=== PATIENT | male | born 1950 | race Caucasian/White ===

== ENCOUNTER → 2017-12-24 | Outpatient (CLI) | payer MEDICARE ==
[2017-12-24 12:57] LABS: Blood Urea Nitrogen 23 mg/dL (9-20)
--- NOTE | 2017-12-24 15:20 | CT ---
EXAMINATION TYPE: CT angio abdomen DATE OF EXAM: 12/24/2017 COMPARISON: June 06, 2016 HISTORY: Patient has no complaints at time of service. Follow up study for known abdominal aortic an eurysm. CT DLP: 602 mGycm CONTRAST: CTA abdominal aorta with 3-D reconstruction is performed and with IV Contrast, patient injected with 100 mL of Omnipaque 350. Contrast CTA of the thoracic and abdominal aorta was performed from the lung apex through the base of the pelvis. 3-D reconstruction imaging obtained at a separate workstation. CONTRAST CT ABDOMEN AND PELVIS ABDOMINAL AORTA: Again noted is infrarenal abdominal aortic aneurysm which measures 5.1 cm AP dimensi on versus 4.6 cm previously. Aneurysm extends approximately 7.7 cm in length. There is a mural thromb us with patent lumen measuring 2.1 cm AP dimension. There is ectasia of the common iliac iliac artery measuring 1.7 cm on the right hand 1.4 cm on the left. Aneurysm neck is approximately 3.7 cm. No angelica dence for dissection or leak. Branch vessels are patent. Lung bases: Calcified pleural plaques identified. LIVER/GB-hepatic steatosis with mild hepatomegaly. The gallbladder surgically absent.. PANCREAS- No significant abnormality is seen. SPLEEN- No significant abnormality is seen. ADRENALS- No significant abnormality is seen. KIDNEYS/BLADDER-simple cortical cyst left mid kidney. No solid renal lesions detected. The kidneys en ilan symmetrically.. BOWEL- No Significant abnormality GENITAL ORGANS: No gross abnormality seen. LYMPH NODES- No greater than 1cm abdominal or pelvic lymph nodes areappreciated. OSSEOUS STRUCTURES- No significant abnormality is seen. [id number] inguinal hernias identified. IMPRESSION- 1. Progression of infrarenal abdominal aortic aneurysm as discussed above. 2. Hepatic steatosis with mild hepatomegaly.
== END | disposition home or self-care (01) ==
LOC: RADCTMAIN 12:14
PROVIDERS: ATTEND Thoracic Surgery (Cardiothoracic Vascular Surgery)
DX: I71.4 Abdominal aortic aneurysm, without rupture (principal); K76.0 Fatty (change of) liver, not elsewhere classified; R16.0 Hepatomegaly, not elsewhere classified
CPT/HCPCS: 82565; 84520; 74175; 36415; Q9967

== ENCOUNTER → 2018-04-08 | Outpatient (CLI) | payer MEDICARE ==
[2018-04-08 10:12] LABS: Blood Urea Nitrogen 25 mg/dL (9-20)
--- NOTE | 2018-04-12 16:31 | CT ---
EXAMINATION TYPE: CT angio abdomen pelvis DATE OF EXAM: 04/08/2018 COMPARISON: CTA abdomen December 24, 2017 HISTORY: Endo leak, history of aneurysm repair earlier this year. CT DLP: 1651.0 mGycm, Automated Exposure Control for Dose Reduction was Utilized. CONTRAST: CTA scan of the abdomen and pelvis is performed without oral and without and with IV Contrast, patien t injected with 100 mL of Isovue 370. Stent graft protocol with Three-D reconstructed images created on independent workstation and reviewed. FINDINGS: VASCULAR: There is new aortobiiliac stent graft which begins at level of celiac axis. There is paten t celiac access, SMA, and bilateral single renal arteries identified. Contrast opacification bilatera l main is favored due to retrograde flow. Stent graft shows a nonmetallic component infrarenal locati on that bridges into the biiliac metallic portion. Postcontrast images show satisfactory opacificatio n of the stent graft. There is no suspicious extraluminal enhancement. There is patency into internal /external iliac arteries identified without significant stenosis. There is mild to moderate plaque th roughout these branch vessels into femoral vessels in the groin region bilaterally without significan t stenosis. [place] aneurysm measures up to 5.1 cm transversely axial image 48 series 5, felt fairly s table from prior study. LUNG BASES: Bilateral calcified pleural plaques are redemonstrated. There is bibasilar linear scarrin g and/or atelectasis. LIVER/GB: Cholecystectomy clips are redemonstrated. Visualized liver is heterogeneously hypodense con sistent with fatty infiltration. PANCREAS: No significant abnormality is seen. SPLEEN: No significant abnormality is seen. ADRENALS: No significant abnormality is seen. KIDNEYS: There is exophytic simple appearing cyst laterally from left kidney series 5 image 34 redemo nstrated. BOWEL: Normal-appearing appendix is incidentally seen. Scattered diverticula throughout the colon mos t prominent in the sigmoid colon are redemonstrated. There is no CT evidence for acute diverticulitis . PROSTATE/SEMINAL VESICLES: No gross abnormality seen. LYMPH NODES: No greater than 1cm abdominal or pelvic lymph nodes are appreciated. OSSEOUS STRUCTURES: There is fairly moderate multilevel spurring in the thoracolumbar spine. OTHER: Small fat-containing left inguinal hernia is redemonstrated. IMPRESSION: Interval placement of aortobiiliac stent graft which appears patent without significant s tenosis. No CT evidence for endoleak or other complication.
== END | disposition home or self-care (01) ==
LOC: RADCTMAIN 09:40
PROVIDERS: ATTEND Surgery
DX: T82.898A Other specified complication of vascular prosthetic devices, implants and grafts, initial encounter (principal); Z85.828 Personal history of other malignant neoplasm of skin
CPT/HCPCS: 82565; 84520; 36415; 74174; Q9967

== ENCOUNTER 2023-04-22 09:02 | Day surgery (SDC) | payer MEDICARE ==
[~2023-04-22 09:02] MED LIST: FAMOTIDINE 20 MG/2 ML VIAL IV PRN; ONDANSETRON 4 MG/2 ML VIAL IVP PRN
[2023-04-22] MEDS ORDERED: LACTATED RINGERS 1,000 ML IV SCH (09:31)
[2023-04-22] MEDS ORDERED: DEXAMETHASONE SOD PHOSPHATE 4 MG/ML 1 ML VIAL IV ONE (09:31)
[2023-04-22 09:56] VITALS: TEMP 97
[2023-04-22] MEDS ORDERED: ePHEDrine 50 MG/ML 1 ML VIAL ONE (10:25)
[2023-04-22] MEDS ORDERED: LIDOCAINE 2% INJ 20 MG/ML (2 ML VIAL) ONE (10:25)
[2023-04-22] MEDS ORDERED: fentaNYL (PF) 50 MCG/ML 2 ML AMP ONE (10:25)
[2023-04-22] MEDS ORDERED: PROPOFOL 10 MG/ML 20 ML VIAL IV ONE (10:25)
[2023-04-22] MEDS ORDERED: SUCCINYLCHOLINE CHLORIDE 200 MG/10 ML VIAL IV ONE (10:25)
[2023-04-22] MEDS ORDERED: LIDOCAINE 2%-EPI 1:100,000 20 ML VIAL SQ ONE (10:45)
[2023-04-22] MEDS ORDERED: BACITRACIN ZINC 500 UNIT/GM OINT 28.4 GM TUBE TOPICAL ONE (11:48)
--- NOTE | 2023-04-22 11:56 | P.OP ---
Date of Procedure: 04/22/23 Preoperative Diagnosis: Left upper neck/parotid mass Postoperative Diagnosis: Same Procedure(s) Performed: Excision left upper neck mass/inferior parotid lesion/superficial parotidectomy with facial nerve monitor Anesthesia: IGORA Surgeon: Mati Arguello Estimated Blood Loss (ml): 5 Pathology: other (Left neck/parotid mass) Condition: stable Disposition: PACU Indications for Procedure: This 72-year-old white male who presents with a left upper neck mass. This appeared on CT to arise from the lower aspect of the parotid gland but is in the upper neck. Fine-needle aspiration was nondiagnostic. Operative Findings: Cystic mass left upper neck 7 x 2.5 cm which was well arcaded. 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 This was excised grossly entirely Description of Procedure: Patient was brought in after suite and placed in a supine position. The patient underwent induction of general anesthesia with oral endotracheal intubation without difficulty. Patient was prepped and draped in usual aseptic fashion. The Nim II nerve monitor was in place and was working well to monitor the facial nerve. A transverse upper cervical incision was made 2 fingerbreadths below the mandible and carried sharply through skin and subcutaneous tissue as well as platysma layer. The lesion was located anteriorly sternocleidomastoid muscle and a plane was developed between the sternocleidomastoid muscle and the mass. The greater regular nerve was identified and preserved. The spinal accessory nerve was deep to this lesion. This did abut the inferior aspect of the parotid gland and therefore a small cuff of normal-appearing products and was excised with the lesion. The lesion was excised from the surrounding tissue grossly entirely and was then removed. The marginal mandibular branch of facial nerve was identified and preserved. In well with the monitor at the conclusion of the case. The wound was copiously irrigated with sterile normal saline and hemostasis noted to be good. The wound was then closed in the deep muscular and superficial muscular layer with inverted interrupted Prolene suture. Bacitracin ointment and a sterile dressing were placed. The patient tolerated procedure well with no complications and was extubated in the operating suite and transferred to postop recovery area in satisfactory condition. Facial nerve was working well at the conclusion of the case.
[2023-04-22 12:12] VITALS: RESP 16
[2023-04-22 13:10] VITALS: BP 146/82; PULSE 75
[2023-04-23] MEDS ORDERED: fentaNYL (PF) 50 MCG/ML 2 ML AMP IV PRN (07:00)
== END 2023-04-22 13:24 | disposition home or self-care (01) ==
LOC: OR 09:02
PROVIDERS: ATTEND Otolaryngology
DX: D11.9 Benign neoplasm of major salivary gland, unspecified (principal); I48.91 Unspecified atrial fibrillation; I10 Essential (primary) hypertension; E78.5 Hyperlipidemia, unspecified; M19.90 Unspecified osteoarthritis, unspecified site; F10.20 Alcohol dependence, uncomplicated; Z79.01 Long term (current) use of anticoagulants; Z79.899 Other long term (current) drug therapy; Z87.891 Personal history of nicotine dependence
CPT/HCPCS: 88307; 42415; J0330; J1100; J0690; J2405; J3010; J2704; J2001

== ENCOUNTER 2024-04-23 20:49 | Observation (INO) | payer MEDICARE ==
[2024-04-23 21:42] LABS: Basophils % (A) 1 %; Eosinophils # (A) 0.2 k/uL (0-0.7); Eosinophils % (A) 4 %; HCT 35.7 % (39.0-53.0); Lymphocytes # (A) 2.2 k/uL (1.0-4.8); Lymphocytes % (A) 33 %; MCH 33.9 pg (25.0-35.0); MCHC 33.5 g/dL (31.0-37.0); MCV 101.3 fL (80.0-100.0); Macrocytosis Slight; Mean Platelet Volume 7.7; Monocytes # (A) 0.4 k/uL (0-1.0); Monocytes % (A) 7 %; Neutrophils # (A) 3.6 k/uL (1.3-7.7); Neutrophils % (A) 54 %; Platelet Count 259 k/uL (150-450); RBC 3.53 m/uL (4.30-5.90); WBC 6.6 k/uL (3.8-10.6)
--- NOTE | 2024-04-23 21:51 | CT ---
EXAMINATION TYPE: CT brain wo con DATE OF EXAM: 04/23/2024 COMPARISON: INDICATION: weakness DLP: 1101.8 mGycm, Automated exposure control for dose reduction was used. CONTRAST: None CT of the brain is performed utilizing 3 mm thick sections through the posterior fossa and 3 mm thick sections through the remaining calvarium. Study is performed within 24 hours of arrival to the hosp ital. No abnormal hyperdensity is present to suggest an acute intracranial hemorrhage. No mass lesion is evident. No acute infarcts are evident. Couple of small lacunar infarcts may be in the right periventricular w joseph matter. Ventricles and sulci are appropriate for the patient age. Paranasal sinuses and mastoid air cells within the [id number] are clear. IMPRESSION: 1. No acute intracranial process radiographically apparent. Follow-up MRI can be performed as clini lauren indicated. 2. Old tiny right periventricular lacunar infarcts may be present.
[2024-04-23 21:52] LABS: Partial Thromboplastin Time 24.7 sec (22.0-30.0); Prothrombin Time 10.5 sec (10.0-12.5)
--- NOTE | 2024-04-23 22:00 | XR ---
EXAMINATION TYPE: XR chest 2V DATE OF EXAM: 04/23/2024 COMPARISON: None INDICATION: Altered mental status TECHNIQUE: Frontal and lateral views of the chest are obtained. FINDINGS: The heart size is normal. The pulmonary vasculature is normal. The lungs are clear. IMPRESSION: 1. No acute pulmonary process.
[2024-04-23 22:07] LABS: ALT 30 U/L (4-49); AST 28 U/L (17-59); African American GFR (CKD) >90 (>60 ml/min/1.73 sqM); Albumin 3.9 g/dL (3.5-5.0); Alkaline Phosphatase 76 U/L (38-126); Anion Gap 7 mmol/L; Blood Urea Nitrogen 20 mg/dL (9-20); Calcium 8.6 mg/dL (8.4-10.2); Carbon Dioxide 26 mmol/L (22-30); Chloride 105 mmol/L (98-107); Creatine Kinase 148 U/L (55-170); Glucose 139 mg/dL (74-99); Non-African American GFR(CKD) 78 (>60 ml/min/1.73 sqM); Potassium 4.1 mmol/L (3.5-5.1); Sodium 138 mmol/L (137-145); Total Bilirubin 1.7 mg/dL (0.2-1.3); Total Protein 6.6 g/dL (6.3-8.2)
--- NOTE | 2024-04-24 03:35 | ED ---
General Adult HPI - General Chief complaint: Neuro Symptoms/Deficit Stated complaint: Possible stroke Time Seen by Provider: 04/24/24 00:54 Source: patient Mode of arrival: ambulatory Limitations: no limitations - History of Present Illness Initial comments: Mason is a pleasant 73-year-old gentleman who presents to the emergency department today for evaluation of concern for TIA. Patient reports that [place] when he had about 3 minutes of left-sided facial droop and slurred speech. Patient states that symptoms resolved spontaneously. He states that one of the friends and his group is an EMT and told him he thought he was having a stroke. Patient did not want to seek care in the [facility] so he waited till he got back to home and came to the hospital today. Patient does note that last month he had a unwitnessed syncopal episode while shopping and was taken to an outside hospital where he was seen in the ER with no acute findings and subsequently discharged home and now he is concerned that that might have been a TIA as well. - Related Data Home Medications Medication Instructions Recorded Confirmed Apixaban [Eliquis] 5 mg PO BID 04/17/23 04/22/23 Atorvastatin Calcium 40 mg PO HS 04/17/23 04/22/23 Metoprolol Succinate (ER) [Toprol 12.5 mg PO DAILY 04/17/23 04/22/23 Xl] Allergies Allergy/AdvReac Type Severity Reaction Status Date / Time No Known Allergies Allergy Verified 04/22/23 09:57 Review of Systems ROS Statement: Those systems with pertinent positive or pertinent negative responses have been documented in the HPI. ROS Other: All systems not noted in ROS Statement are negative. Past Medical History Past Medical History: Atrial Fibrillation, Hyperlipidemia Additional Past Medical History / Comment(s): aneruysm abdominal with stent,went into a fib during knee surgery, History of Any Multi-Drug Resistant Organisms: None Reported Past Surgical History: Cholecystectomy, Joint Replacement Additional Past Surgical History / Comment(s): total rt knee, stent to aneurysm Abdomnial Past Anesthesia/Blood Transfusion Reactions: No Reported Reaction Past Psychological History: No Psychological Hx Reported Smoking Status: Former smoker Past Alcohol Use History: Occasional Past Drug Use History: None Reported General Exam - General Exam Comments Initial Comments: Physical Exam GENERAL: Patient is well-developed and well-nourished. Patient is nontoxic and well- hydrated and is in no distress. HENT: Normocephalic, Atraumatic. EYES: PERRL, EOMI PULMONARY: Unlabored respirations. No audible rales rhonchi or wheezing was noted. CARDIOVASCULAR: There is a regular rate and rhythm without any murmurs gallops or rubs. ABDOMEN: Soft and nontender with normal bowel sounds. SKIN: Skin is clear with no lesions or rashes and otherwise unremarkable. : Deferred NEUROLOGIC: Patient is alert and oriented x3. Moving all extremities spontaneously No facial droop no slurred speech no dysarthria or patient MUSCULOSKELETAL: Normal extremities with adequate strength and full range of motion. No lower extremity swelling or edema. No calf tenderness. PSYCHIATRIC: Normal psychiatric evaluation. Limitations: no limitations Course Vital Signs 04/23/24 04/23/24 04/24/24 20:52 23:59 04:07 Temperature 98.8 F 98.4 F Pulse Rate 77 75 70 Respiratory 18 17 17 Rate Blood Pressure 174/82 150/75 143/70 O2 Sat by Pulse 97 96 97 Oximetry Medical Decision Making - Medical Decision Making Was pt. sent in by a medical professional or institution (, PA, ISSUE CLERK, urgent care, hospital, or fpc...) When possible be specific @ -No Did you speak to anyone other than the patient for history (EMS, parent, family, police, friend...)? What history was obtained from this source @ -No Did you review nursing and triage notes (agree or disagree)? Why? @ -I reviewed and agree with nursing and triage notes Were old charts reviewed (outside hosp., previous admission, EMS record, old EKG, old radiological studies, urgent care reports/EKG's, fpc records)? Report findings @ -No old charts were reviewed Differential Diagnosis (chest pain, altered mental status, abdominal pain women, abdominal pain men, vaginal bleeding, weakness, fever, dyspnea, syncope, headache, dizziness, GI bleed, back pain, seizure, CVA, palpatations, mental he alth)? @ -DM differential CVA EKG interpreted by me (3pts min.). @ -As above X-rays interpreted by me (1pt min.). @ -None done CT interpreted by me (1pt min.). @ -No mass or bleed U/S interpreted by me (1pt. min.). @ -None done What testing was considered but not performed or refused? (CT, X-rays, U/S, labs)? Why? @ -None What meds were considered but not given or refused? Why? @ -None Did you discuss the management of the patient with other professionals (professionals i.e. , PA, ISSUE CLERK, lab, RT, psych nurse, medical social worker, family practice medical doctor, teacher, privacy officer, senior case manager)? Give summary @ -No Was smoking cessation discussed for >3mins.? @ -No Was critical care preformed (if so, how long)? @ -No Were there social determinants of health that impacted care today? How? (Homelessness, low income, unemployed, alcoholism, drug addiction, transportation, low edu. Level, literacy, decrease access to med. care, shelter, rehab)? @ -No Was there de-escalation of care discussed even if they declined (Discuss DNR or withdrawal of care, Hospice)? DNR status @ -No What co-morbidities impacted this encounter? (DM, HTN, Smoking, COPD, CAD, Cancer, CVA, ARF, Chemo, Hep., AIDS, mental health diagnosis, sleep apnea, morbid obesity)? @ -A-fib, obesity Was patient admitted / discharged? Hospital course, mention meds given and route, prescriptions, significant lab abnormalities, going to OR and other pertinent info. @ -Admit Patient was seen and evaluated stroke workup was initiated in triage. There are CT findings concerning for previous lacunar infarcts but no acute findings. Given that the patient has never had a TIA in the past he will be admitted for TIA workup. Aspirin and Lipitor were ordered. Carotid Dopplers and echo were ordered. Patient was accepted to [facility] hospitalist. Undiagnosed new problem with uncertain prognosis? @ -No Drug Therapy requiring intensive monitoring for toxicity (Heparin, Nitro, Insulin, Cardizem)? @ -No Were any procedures done? @ -No Diagnosis/symptom? @ -TIA Acute, or Chronic, or Acute on Chronic? @ -Acute Uncomplicated (without systemic symptoms) or Complicated (systemic symptoms)? @ -Default Side effects of treatment? @ -No Exacerbation, Progression, or Severe Exacerbation? @ -No Poses a threat to life or bodily function? How? (Chest pain, [place], [place], pneumonia, PE, COPD, DKA, ARF, appy, cholecystitis, CVA, Diverticulitis, Homicidal, Suicidal, threat to staff... and all critical care pts) @ -No - Lab Data Result diagrams: 04/23/24 21:16 04/23/24 21:16 Lab Results 04/23/24 04/23/24 04/23/24 Range/Units 21:16 21:16 21:16 WBC 6.6 (3.8-10.6) k/uL RBC 3.53 L (4.30-5.90) m/uL Hgb 12.0 L (13.0-17.5) gm/dL Hct 35.7 L (39.0-53.0) % MCV 101.3 H (80.0-100.0) fL MCH 33.9 (25.0-35.0) pg MCHC 33.5 (31.0-37.0) g/dL RDW 15.0 (11.5-15.5) % Plt Count 259 (150-450) k/uL MPV 7.7 Neutrophils % 54 % Lymphocytes % 33 % Monocytes % 7 % Eosinophils % 4 % Basophils % 1 % Neutrophils # 3.6 (1.3-7.7) k/uL Lymphocytes # 2.2 (1.0-4.8) k/uL Monocytes # 0.4 (0-1.0) k/uL Eosinophils # 0.2 (0-0.7) k/uL Basophils # 0.0 (0-0.2) k/uL Macrocytosis Slight PT 10.5 (10.0-12.5) sec INR 1.0 (<1.2) APTT 24.7 (22.0-30.0) sec Sodium 138 (137-145) mmol/L Potassium 4.1 (3.5-5.1) mmol/L Chloride 105 (98-107) mmol/L Carbon Dioxide 26 (22-30) mmol/L Anion Gap 7 mmol/L BUN 20 (9-20) mg/dL Creatinine 0.95 (0.66-1.25) mg/dL Est GFR (CKD-EPI)AfAm >90 (>60 ml/min/1.73 sqM) Est GFR (CKD-EPI)NonAf 78 (>60 ml/min/1.73 sqM) Glucose 139 H (74-99) mg/dL Calcium 8.6 (8.4-10.2) mg/dL Total Bilirubin 1.7 H (0.2-1.3) mg/dL AST 28 (17-59) U/L ALT 30 (4-49) U/L Alkaline Phosphatase 76 (38-126) U/L Creatine Kinase 148 (55-170) U/L Troponin I (0.000-0.034) ng/mL Total Protein 6.6 (6.3-8.2) g/dL Albumin 3.9 (3.5-5.0) g/dL 04/23/24 Range/Units 21:16 WBC (3.8-10.6) k/uL RBC (4.30-5.90) m/uL Hgb (13.0-17.5) gm/dL Hct (39.0-53.0) % MCV (80.0-100.0) fL MCH (25.0-35.0) pg MCHC (31.0-37.0) g/dL RDW (11.5-15.5) % Plt Count (150-450) k/uL MPV Neutrophils % % Lymphocytes % % Monocytes % % Eosinophils % % Basophils % % Neutrophils # (1.3-7.7) k/uL Lymphocytes # (1.0-4.8) k/uL Monocytes # (0-1.0) k/uL Eosinophils # (0-0.7) k/uL Basophils # (0-0.2) k/uL Macrocytosis PT (10.0-12.5) sec INR (<1.2) APTT (22.0-30.0) sec Sodium (137-145) mmol/L Potassium (3.5-5.1) mmol/L Chloride (98-107) mmol/L Carbon Dioxide (22-30) mmol/L Anion Gap mmol/L BUN (9-20) mg/dL Creatinine (0.66-1.25) mg/dL Est GFR (CKD-EPI)AfAm (>60 ml/min/1.73 sqM) Est GFR (CKD-EPI)NonAf (>60 ml/min/1.73 sqM) Glucose (74-99) mg/dL Calcium (8.4-10.2) mg/dL Total Bilirubin (0.2-1.3) mg/dL AST (17-59) U/L ALT (4-49) U/L Alkaline Phosphatase (38-126) U/L Creatine Kinase (55-170) U/L Troponin I <0.012 (0.000-0.034) ng/mL Total Protein (6.3-8.2) g/dL Albumin (3.5-5.0) g/dL Disposition Clinical Impression: Transient cerebral ischemia Disposition: ADMITTED IP TO THIS HOSP Condition: Stable Is patient prescribed a controlled substance at d/c from ED?: No
[2024-04-24] MEDS: ASPIRIN 325 MG TAB PO STA (03:53)
--- NOTE | 2024-04-24 09:58 | US ---
EXAMINATION TYPE: US carotid duplex BILAT DATE OF EXAM: 04/24/2024 COMPARISON: NONE CLINICAL INDICATION: Male, 73 years old with history of Stenosis; Stenosis TIA TECHNIQUE: Carotid duplex ultrasound examination. Indirect Doppler criteria was utilized. FINDINGS: EXAM MEASUREMENTS: RIGHT: Peak Systolic Velocity (PSV) cm/sec ----- Right CCA: 55.8 ----- Right ICA: 321 ----- Right ECA: 181 ICA/CCA ratio: 5.8 RIGHT: End Diastole cm/sec ----- Right CCA: 16.6 ----- Right ICA: 164 ----- Right ECA: 42 LEFT: Peak Systolic Velocity (PSV) cm/sec ----- Left CCA: 93.7 ----- Left ICA: 157 ----- Left ECA: 136 ICA/CCA ratio: 1.7 LEFT: End Diastole cm/sec ----- Left CCA: 36.7 ----- Left ICA: 49.8 ----- Left ECA: 35.4 VERTEBRALS (direction of flow): Right Vertebral: Antegrade Left Vertebral: Antegrade Rhythm: Normal [employer] ADVISER NOTES: IMPRESSION: 1. Mild increased velocity within the left internal carotid artery compatible with narrowing between 50 and 69%. 2. Marked elevated velocity right internal carotid artery greater than 70%. Criteria for Assigning % of Stenosis / Diameter reduction (Estimation based on the indirect measurements of the internal carotid artery velocities (ICA PSV). 1. Normal (no stenosis)=ICA PSV < 125 cm/s: ratio < 2.0: ICA EDV<40 cm/s. 2. Less than 50% stenosis=ICA PSV < 125 cm/s: ratio < 2.0: ICA EDV<40 cm/s. 3. 50 to 69% stenosis=ICA PSV of 125 to 230 cm/s: ration 2.0 ? 4.0: ICA EDV 40-100 cm/s. 4. Greater than 70% stenosis to near occlusion= ICA PSV > 230 cm/s: ratio > 4.0: ICA EDV > 100 cm/s. 5. Near occlusion= ICA PSV velocities may be low or undetectable: variable ratio and ICA EDV. 6. Total occlusion=unable to detect flow.
--- NOTE | 2024-04-24 13:04 | P.HPIM ---
History of Present Illness H&P Date: 04/24/24 History of present illness; patient 73-year-old gentleman past medical history significant for atrial fibrillation presented to ER for evaluation for episode of left facial droop. Patient stated that he was [place] group of friends and yesterday had an event when his friend noted that his face was droopy on the left side as well as slurred speech, the whole episode lasted less than 3 minutes. At that time there was no complaint of weakness of any extremity. No complaint of loss of consciousness. Patient was back to normal. At the time he did not seek any medical help and decided to wait till he come back to [place]. Patient also recalls that he had an event last month for syncope at which time he was seen in the hospital and was discharged. Initial lab work done in the ER showed WBC 6.6, hemoglobin 12, platelet count 259, sodium 130, potassium 4.1, BUN 20, creatinine 0.95, calcium 8.6, glucose 113, bilirubin 1.7, troponin 0.012 Chest x-ray done in the ER showed no acute pulmonary process CT head done showed no acute intracranial process, old tiny right periventric ular lacunar infarct may be present Patient admitted to internal medicine service REVIEW OF SYSTEMS: CONSTITUTIONAL: No fever, no malaise, no fatigue. HEENT: No recent visual problems or hearing problems. Denied any sore throat. CARDIOVASCULAR: No chest pain, orthopnea, PND, no palpitations, no syncope. PULMONARY: No shortness of breath, no cough, no hemoptysis. GASTROINTESTINAL: No diarrhea, no nausea, no vomiting, no abdominal pain. NEUROLOGICAL: As mentioned above HEMATOLOGICAL: Denies any bleeding or petechiae. GENITOURINARY: Denies any burning micturition, frequency, or urgency. MUSCULOSKELETAL/RHEUMATOLOGICAL: Denies any joint pain, swelling, or any muscle pain. ENDOCRINE: Denies any polyuria or polydipsia. The rest of the 14-point review of systems is negative. PHYSICAL EXAMINATION: GENERAL: The patient is alert and oriented x3, not in any acute distress. Well developed, well nourished. HEENT: Pupils are round and equally reacting to light. EOMI. No scleral icterus. No conjunctival pallor. Normocephalic, atraumatic. No pharyngeal erythema. No thyromegaly. CARDIOVASCULAR: S1 and S2 present. No murmurs, rubs, or gallops. PULMONARY: Chest is clear to auscultation, no wheezing or crackles. ABDOMEN: Soft, nontender, nondistended, normoactive bowel sounds. No palpable organomegaly. MUSCULOSKELETAL: No joint swelling or deformity. EXTREMITIES: No cyanosis, clubbing, or pedal edema. NEUROLOGICAL: Gross neurological examination did not reveal any focal deficits. SKIN: No rashes. Assessment and plan TIA Right ICA stenosis History of syncope History of atrial fibrillation Monitor vital signs Monitor CBC Monitor CMP Continue telemetry monitoring Continue neurochecks Ordered lipid panel Ordered HbA1c level Continue Plavix and Lipitor Ordered 2D echo Ordered ultrasound of carotids Consult neurology Labs and medication were reviewed.. Continue same treatment. Continue with symptomatic treatment. Resume home medication. Monitor labs and vitals. DVT and GI prophylaxis. Further recommendations as per clinical course of the patient Dictation was produced using [employer] dictation software. please excuse any grammatical, word or spelling errors. Past Medical History Past Medical History: Atrial Fibrillation, Hyperlipidemia Additional Past Medical History / Comment(s): aneruysm abdominal with stent,went into a fib during knee surgery, History of Any Multi-Drug Resistant Organisms: None Reported Past Surgical History: Cholecystectomy, Joint Replacement Additional Past Surgical History / Comment(s): total rt knee, stent to aneurysm Abdomnial Past Anesthesia/Blood Transfusion Reactions: No Reported Reaction Past Psychological History: No Psychological Hx Reported Smoking Status: Former smoker Past Alcohol Use History: Occasional Past Drug Use History: None Reported Medications and Allergies Home Medications Medication Instructions Recorded Confirmed Type Apixaban [Eliquis] 5 mg PO BID 04/17/23 04/24/24 History Atorvastatin Calcium 40 mg PO HS 04/17/23 04/24/24 History Metoprolol Succinate (ER) [Toprol 12.5 mg PO DAILY 04/17/23 04/24/24 History Xl] Mv-Min/Folic/K1/Lycopen/Lutein 1 tab PO DAILY 04/24/24 04/24/24 History [Centrum Silver Men Tablet] Allergies Allergy/AdvReac Type Severity Reaction Status Date / Time No Known Allergies Allergy Verified 04/24/24 09:36 Physical Exam Vitals: Vital Signs Temp Pulse Pulse Resp BP BP Pulse Ox 04/24/24 07:28 97.7 F 68 17 127/69 96 04/24/24 04:07 98.4 F 70 17 143/70 97 04/23/24 23:59 75 17 150/75 96 04/23/24 20:52 98.8 F 77 18 174/82 97 Intake and Output 04/23/24 04/24/24 04/24/24 22:59 06:59 14:59 Other: # Voids 1 Weight 87.997 kg 87.997 kg Results CBC & Chem 7: 04/23/24 21:16 04/23/24 21:16 Labs: Abnormal Lab Results - Last 24 Hours (Table) 04/23/24 04/23/24 Range/Units 21:16 21:16 RBC 3.53 L (4.30-5.90) m/uL Hgb 12.0 L (13.0-17.5) gm/dL Hct 35.7 L (39.0-53.0) % MCV 101.3 H (80.0-100.0) fL Glucose 139 H (74-99) mg/dL Total Bilirubin 1.7 H (0.2-1.3) mg/dL Thrombosis Risk Factor Assmnt - Choose All That Apply Any of the Below Risk Factors Present?: Yes Each Factor Represents 1 point: Obesity (BMI >25) Other Risk Factors: Yes Each Risk Factor Represents 3 Points: Age 75 years or older Other congenital or acquired thrombophilia - If yes, enter type in comment: No Thrombosis Risk Factor Assessment Total Risk Factor Score: 4 Thrombosis Risk Factor Assessment Level: Moderate Risk
--- NOTE | 2024-04-24 13:06 | P.CNNES ---
History of Present Illness Consult date: 04/24/24 Requesting physician: Randi Bray Reason for Consult: tia History of Present Illness: This is a 73-year-old gentleman with history of atrial fibrillation on Eliquis, essential tremor, borderline diabetes who presents to the emergency department because of left facial droop, slurring of the speech. Patient stated that he was with his friends [place] while he was in [facility] this past Thursday and he had slurring of the speech, and he slumped over and he does not recall the episode. One of his friends is a former EMT and he felt the patient was slurring his speech and had a left facial droop. The episode lasted for 3 minutes. After the episode he felt back to baseline. He stated about a month ago he was dizzy and he fell while shopping but did not lose consciousness and he was taken to [facility] and had workup he had a CT of the head EKG and x-ray and everything was normal. He was discharged home. He denies any history of stroke or TIAs in the past. Denies any history of seizure. He states that he has a history of atrial fibrillation and he is compliant taking his Eliquis. He states while taking aspirin in the past he had epistaxis so it was discontinued in the past. He is on Lipitor. Denies tobacco use or any illicit drug use. He socially drinks alcohol. He decided to come to the hospital now to be closer to family. Some of the workup during this hospital visit consisted of: Reviewed lab workup. CT of the head is reported as no acute intracranial process radiographically apparent. Old tiny right periventricular lacunar infarct may be present. Personally reviewed the CT of the head and I agree with the report. Review of Systems Review of system: The 12 point system was reviewed and apparent positive and ne gative per HPI. Past Medical History Past Medical History: Atrial Fibrillation, Hyperlipidemia Additional Past Medical History / Comment(s): aneruysm abdominal with stent,went into a fib during knee surgery, History of Any Multi-Drug Resistant Organisms: None Reported Past Surgical History: Cholecystectomy, Joint Replacement Additional Past Surgical History / Comment(s): total rt knee, stent to aneurysm Abdomnial Past Anesthesia/Blood Transfusion Reactions: No Reported Reaction Past Psychological History: No Psychological Hx Reported Smoking Status: Former smoker Past Alcohol Use History: Occasional Past Drug Use History: None Reported Medications and Allergies Home Medications Medication Instructions Recorded Confirmed Type Apixaban [Eliquis] 5 mg PO BID 04/17/23 04/24/24 History Atorvastatin Calcium 40 mg PO HS 04/17/23 04/24/24 History Metoprolol Succinate (ER) [Toprol 12.5 mg PO DAILY 04/17/23 04/24/24 History Xl] Mv-Min/Folic/K1/Lycopen/Lutein 1 tab PO DAILY 04/24/24 04/24/24 History [Centrum Silver Men Tablet] Allergies Allergy/AdvReac Type Severity Reaction Status Date / Time No Known Allergies Allergy Verified 04/24/24 09:36 Physical Examination - Vital Signs Vital Signs: Vital Signs Temp Pulse Pulse Resp BP BP Pulse Ox 04/24/24 07:28 97.7 F 68 17 127/69 96 04/24/24 04:07 98.4 F 70 17 143/70 97 04/23/24 23:59 75 17 150/75 96 04/23/24 20:52 98.8 F 77 18 174/82 97 Intake and Output 04/23/24 04/24/24 04/24/24 22:59 06:59 14:59 Other: # Voids 1 Weight 87.997 kg 87.997 kg GENERAL: The patient is lying in bed and is not in acute distress. NEUROLOGICAL: Higher mental function: The patient is awake, alert, oriented to self, place and time. Patient is following commands. No aphasia and no neglect. Cranial nerves: The pupils are round, equal and reactive to light and accommodation. Visual bravo are full to confrontation throughout. Extraocular movement is intact no nystagmus is noted. Facial sensation is normal to touch throughout. The facial strength is normal throughout. Hearing is normal bilaterally to hand rub. Tongue is midline and moved [id number] without any difficulty. No dysarthria is noted. Shoulder shrug is normal bilaterally. Motor: The strength is 5 over 5 throughout. Normal tone and bulk. Cerebellum: Normal finger to nose heel to martinez bilaterally. Has end action tremor. Sensation: Sensation is normal to touch throughout. Reflexes (right/left): 2+ throughout. Plantars are downgoing bilaterally. Results - Laboratory Findings CBC and BMP: 04/23/24 21:16 04/23/24 21:16 Abnormal Lab Findings: Abnormal Labs 04/23/24 04/23/24 21:16 21:16 RBC 3.53 L Hgb 12.0 L Hct 35.7 L MCV 101.3 H Glucose 139 H Total Bilirubin 1.7 H Assessment and Plan Assessment: This is a 73-year-old gentleman present emergency department since on Thursday while with friends in the [facility] he had episode of dysarthria, left facial droop and slumped off. He does not recall the episode. The episode lasted for 3 minutes. He decided to come to the hospital in [place] to be closer to the family. Transient episode of left facial droop, dysarthria is likely due to transient ischemic attack. Recent CT head shows no acute process but old lacunar on the right and it seems over the right basal ganglia. Recent episode of dizziness falling without loss of consciousness and had workup at outside hospital at [facility] and had CT of the head which was unremarkable Atrial fibrillation on Eliquis Borderline diabetes History of abdominal aortic aneurysm status postrepair Essential tremor Plan: ED the patient was given aspirin 325 once today. I will not start the patient on aspirin since he has a history of epistaxis with aspirin use. I started the patient on Plavix 75 mg daily. Recommend resuming his Eliquis for his history of A-fib. Lipitor 80 mg nightly is started by the ED team at home he was on 40 mg. I ordered MRI of the brain, carotid duplex 2D echo, Lipid panel was ordered and is pending Continue neurochecks Cardiac monitoring PT OT and CARDIOPULMONARY TECHNOLOGIST are consulted For the rest of the medical management to primary and other specialist For DVT prophylaxis again recommend the patient to be on Eliquis The plan discussed with the patient and his nurse Thank you for the consultation Addendum: Carotid duplex is reported as mild increased velocity within the left internal carotid artery compatible with narrowing between 50 and 69%. Marked elevated velocity right ICA greater than 70%. The patient has symptomatic right ICA will consult vascular surgery team Time with Patient: Greater than 30
[2024-04-24] MEDS: APIXABAN 5 MG TAB PO SCH (21:42)
[2024-04-24] MEDS: ATORVASTATIN 80 MG TAB PO SCH (21:42)
[2024-04-25] MEDS ORDERED: ASPIRIN 325 MG TAB PO SCH (09:00)
[2024-04-25] MEDS: CLOPIDOGREL 75 MG TAB PO SCH (09:32)
[2024-04-25] MEDS: METOPROLOL SUCCINATE (ER) 25 MG TAB.ER.24H PO SCH (09:33)
[2024-04-25 09:38] LABS: Chol/HDL Ratio 3.92 Ratio; LDL Cholesterol,Calculated 80.8 mg/dL (0.0-131.0)
--- NOTE | 2024-04-25 14:07 | P.GSCN ---
History of Present Illness Consult date: 04/25/24 Reason for Consult: Carotid stenosis History of present illness: Patient is a 73-year-old male who had presented with a 3-minute history of left facial droop and speech slurring. According to Dr. Galloway the patient had also expressed a history of left arm weakness although that was not provided to me by the patient. His symptoms have not reoccurred. He has a history of abdominal aortic aneurysm which has been repaired approximately [address] Kline. He denies any previous neurologic event. Past Medical History Past Medical History: Atrial Fibrillation, Hyperlipidemia Additional Past Medical History / Comment(s): aneruysm abdominal with stent,went into a fib during knee surgery, History of Any Multi-Drug Resistant Organisms: None Reported Past Surgical History: Cholecystectomy, Joint Replacement Additional Past Surgical History / Comment(s): total rt knee, stent to aneurysm Abdomnial Past Anesthesia/Blood Transfusion Reactions: No Reported Reaction Past Psychological History: No Psychological Hx Reported Smoking Status: Former smoker Past Alcohol Use History: Occasional Past Drug Use History: None Reported Medications and Allergies Home Medications Medication Instructions Recorded Confirmed Type Apixaban [Eliquis] 5 mg PO BID 04/17/23 04/24/24 History Atorvastatin Calcium 40 mg PO HS 04/17/23 04/24/24 History Metoprolol Succinate (ER) [Toprol 12.5 mg PO DAILY 04/17/23 04/24/24 History Xl] Mv-Min/Folic/K1/Lycopen/Lutein 1 tab PO DAILY 04/24/24 04/24/24 History [Centrum Silver Men Tablet] Allergies Allergy/AdvReac Type Severity Reaction Status Date / Time No Known Allergies Allergy Verified 04/24/24 09:36 Surgical - Exam Osteopathic Statement: *. No significant issues noted on an osteopathic structural exam other than those noted in the History and Physical/Consult. Vital Signs Temp Pulse Resp BP Pulse Ox 98.8 F 77 18 174/82 97 04/23/24 20:52 04/23/24 20:52 04/23/24 20:52 04/23/24 20:52 04/23/24 20:52 Patient is awake, alert in no apparent distress. Neck is supple without carotid bruit noted. Heart: Regular rate and rhythm. Lungs: Clear to auscultation bilaterally. Abdomen: Soft and otherwise benign. Lower extremities: Demonstrates palpable femoral, popliteal and posterior tibial pulses bilaterally. There is no leg edema. Neurologic examination demonstrates cranial nerves II through XII are grossly intact. There appears to be equal motor strength in the upper and lower extremities bilaterally. I reviewed with the patient the results of the venous duplex demonstrating hemodynamically severe right ICA stenosis. To further evaluate this we will obtain a CT angiogram of the neck to evaluate for possible carotid stenting versus endarterectomy. Results - Labs 04/23/24 21:16 04/23/24 21:16 Abnormal Lab Results - Last 24 Hours (Table) 04/25/24 04/25/24 Range/Units 06:35 06:35 Hemoglobin A1c 6.9 H (<=6.0) % Triglycerides 181.00 H (0.00-149.00) mg/dL Diabetes panel 04/25/24 04/25/24 Range/Units 06:35 06:35 Hemoglobin A1c 6.9 H (<=6.0) % Triglycerides 181.00 H (0.00-149.00) mg/dL HDL Cholesterol 40.00 (40.00-60.00) mg/dL Assessment and Plan Assessment: Hemodynamically severe and possibly symptomatic right ICA stenosis Status post stent graft repair abdominal aortic aneurysm Plan: Will obtain CT angiogram of the carotid system bilaterally. Further recommendations will be forthcoming.
--- NOTE | 2024-04-25 14:11 | P.PN ---
Subjective Progress Note Date: 04/25/24 patient 73-year-old gentleman past medical history significant for atrial fibrillation presented to ER for evaluation for episode of left facial droop. Patient stated that he was [place] a group of friends and yesterday had an event when his friend noted that his face was droopy on the left side as well as slurred speech, the whole episode lasted less than 3 minutes. At that time there was no complaint of weakness of any extremity. No complaint of loss of consciousness. Patient was back to normal. At the time he did not seek any medical help and decided to wait till he come back to [place]. Patient also recalls that he had an event last month for syncope at which time he was seen in the hospital and was discharged. Initial lab work done in the ER showed WBC 6.6, hemoglobin 12, platelet count 259, sodium 130, potassium 4.1, BUN 20, creatinine 0.95, calcium 8.6, glucose 113, bilirubin 1.7, troponin 0.012 Chest x-ray done in the ER showed no acute pulmonary process CT head done showed no acute intracranial process, old tiny right periventricular lacunar infarct may be present Patient admitted to internal medicine service 04/25. Patient seen and examined. Neurology evaluated patient, ordered MRI brain. Denies any further episodes of slurred speech. Denies any weakness of any extremity REVIEW OF SYSTEMS: CONSTITUTIONAL: No fever, no malaise,. CARDIOVASCULAR: No chest pain, no palpitations, no syncope. PULMONARY: No shortness of breath, no cough, GASTROINTESTINAL: No diarrhea, no nausea, no vomiting, no abdominal pain. NEUROLOGICAL: No headaches, no weakness, PHYSICAL EXAMINATION: GENERAL: The patient is alert and oriented x3, not in any acute distress. Well developed, well nourished. HEENT: Pupils are round and equally reacting to light. EOMI. No scleral icterus. No conjunctival pallor. Normocephalic, atraumatic. No pharyngeal erythema. No thyromegaly. CARDIOVASCULAR: S1 and S2 present. No murmurs, rubs, or gallops. PULMONARY: Chest is clear to auscultation, no wheezing or crackles. ABDOMEN: Soft, nontender, nondistended, normoactive bowel sounds. No palpable organomegaly. MUSCULOSKELETAL: No joint swelling or deformity. EXTREMITIES: No cyanosis, clubbing, or pedal edema. NEUROLOGICAL: Gross neurological examination did not reveal any focal deficits. SKIN: No rashes. Assessment and plan TIA Right ICA stenosis History of syncope History of atrial fibrillation Monitor vital signs Monitor CBC Monitor CMP Continue telemetry monitoring Continue neurochecks Continue Plavix and Lipitor Continue Eliquis CTA head and neck ordered Neurology following Vascular surgery following Labs and medication were reviewed.. Continue same treatment. Continue with symptomatic treatment. Resume home medication. Monitor labs and vitals. DVT and GI prophylaxis. Further recommendations as per clinical course of the patient Dictation was produced using [employer] dictation software. please excuse any grammatical, word or spelling errors. Objective - Vital Signs Vital signs: Vital Signs Temp 98.1 F 04/25/24 07:15 Pulse 73 04/25/24 07:15 Resp 16 04/25/24 09:20 BP 124/73 04/25/24 07:15 Pulse Ox 95 04/25/24 07:15 FiO2 Intake & Output 04/24/24 04/25/24 04/25/24 18:59 06:59 18:59 Intake Total 118 Balance 118 Intake: Oral 118 Other: Voiding Method Toilet # Voids 2 2 - Labs CBC & Chem 7: 04/23/24 21:16 04/23/24 21:16 Labs: Abnormal Lab Results - Last 24 Hours (Table) 04/25/24 04/25/24 Range/Units 06:35 06:35 Hemoglobin A1c 6.9 H (<=6.0) % Triglycerides 181.00 H (0.00-149.00) mg/dL
--- NOTE | 2024-04-25 14:43 | P.PN ---
Subjective Progress Note Date: 04/25/24 I am following-up with patient and he feels he continues to be doing well. No further neurological issues. Objective - Vital Signs Vital signs: Vital Signs Temp 98.1 F 04/25/24 07:15 Pulse 73 04/25/24 07:15 Resp 16 04/25/24 09:20 BP 124/73 04/25/24 07:15 Pulse Ox 95 04/25/24 07:15 FiO2 Intake & Output 04/24/24 04/25/24 04/25/24 18:59 06:59 18:59 Intake Total 118 Balance 118 Intake: Oral 118 Other: Voiding Method Toilet # Voids 2 2 - Exam GENERAL: The patient is lying in bed and is not in acute distress. NEUROLOGICAL: Higher mental function: The patient is awake, alert, oriented to self, place and time. Patient is following commands. No aphasia and no neglect. Cranial nerves: The pupils are round, equal and reactive to light and accommodation. Visual bravo are full to confrontation throughout. Extraocular movement is intact no nystagmus is noted. Facial sensation is normal to touch throughout. The facial strength is normal throughout. Hearing is normal bilaterally to hand rub. Tongue is midline and moved [id number] without any difficulty. No dysarthria is noted. Shoulder shrug is normal bilaterally. Motor: The strength is 5 over 5 throughout. Normal tone and bulk. Cerebellum: Normal finger to nose heel to martinez bilaterally. Has end action tremor. Sensation: Sensation is normal to touch throughout. Reflexes (right/left): 2+ throughout. Plantars are downgoing bilaterally. Some of the workup during this hospital visit consisted of: Lipid panel: TG 181, Cholestrol 157, LDL 80 and HDL 40 HbA1c: 6.9 CT of the head is reported as no acute intracranial process radiographically apparent. Old tiny right periventricular lacunar infarct may be present. Personally reviewed the CT of the head and I agree with the report. Carotid duplex is reported as mild increased velocity within the left internal carotid artery compatible with narrowing between 50 and 69%. Marked elevated velocity right ICA greater than 70%. - Labs CBC & Chem 7: 04/23/24 21:16 04/23/24 21:16 Labs: Abnormal Lab Results - Last 24 Hours (Table) 04/25/24 04/25/24 Range/Units 06:35 06:35 Hemoglobin A1c 6.9 H (<=6.0) % Triglycerides 181.00 H (0.00-149.00) mg/dL Assessment and Plan Assessment: This is a 73-year-old gentleman present emergency department since on Thursday while with friends in the [facility] he had episode of dysarthria, left facial droop and slumped off. He does not recall the episode. The episode lasted for 3 minutes. He decided to come to the hospital in [place] to be closer to the family. Transient episode of left facial droop, dysarthria is likely due to transient ischemic attack. Recent CT head shows no acute process but old lacunar on the right and it seems over the right basal ganglia. Has symptomatic right ICA stenosis Symptomatic Right ICA stenosis >70% on duplex Left ICA is 50-69% stenosis on duplex Recent episode of dizziness falling without loss of consciousness and had workup at outside hospital at [facility] and had CT of the head which was unremarkable Atrial fibrillation on Eliquis Borderline diabetes History of abdominal aortic aneurysm status postrepair Essential tremor Plan: ED the patient was given aspirin 325 once today. I will not start the patient on aspirin since he has a history of epistaxis with aspirin use. I started the patient on Plavix 75 mg daily. He is resumed on home Eliquis 5mg bid for his history of A-fib. Lipitor 80 mg nightly is started by the ED team at home he was on 40 mg. Pending MRI of the brain and 2D echo. Vascular surgery team is consulted and agree with him regarding pursuing CTA head and neck Continue neurochecks Cardiac monitoring PT OT and FOOD SERVICE SPECIALIST are consulted For the rest of the medical management to primary and other specialist For DVT prophylaxis On Eliquis The plan discussed with the patient and his nurse and vascular surgeon. Dr. Hawthorne will resume neurology service tomorrow A.M. Time with Patient: Less than 30
[2024-04-26 09:47] VITALS: RESP 16
[2024-04-26] MEDS ORDERED: DEXTROSE 50% SYRINGE 50 ML IVP PRN ×2 (10:00)
--- NOTE | 2024-04-26 10:44 | CT ---
EXAMINATION TYPE: CT angio head neck DATE OF EXAM: 04/26/2024 HISTORY: carotid stenosis COMPARISON: CT DLP: 694.1 mGycm. Automated Exposure Control for Dose Reduction was Utilized. TECHNIQUE: CTA scan of the neck is performed with IV Contrast, patient injected with 100ml mL of Iso kathy 370, axial images are obtained, coronal and sagittal reformatted images are reviewed. Three-D rec onstructed images are created on an independent workstation and reviewed. Source images are reviewed . FINDINGS: Carotid/Vascular Structures: Common origin of the left common carotid artery and innominate. Common carotid arteries bifurcate into internal and external carotid arteries. No significant stenosi s evident at the left internal carotid artery origin. It appears to be a critical stenosis at the valorie gin of the right internal carotid artery with no definite contrast identified at the origin with calc ification but contrast reconstituting the internal carotid artery proximally Left vertebral artery is dominant. Internal carotid arteries and vertebral arteries are patent to the skull base. Cervical of [place]: Vertebral basilar system appears normal. Posterior cerebral vasculature is unrema rkable. Internal carotid arteries bifurcate normally into A1 and M1 segments. A2 segments are normal. The anterior communicating artery is patent. The posterior communicating arteries are not patent. Other: There is some pleural plaquing along the posterior medial right lung base. Minimal calcificati on may be present. There is a 1.3 cm pretracheal lymph node present. Additional shotty lymphadenopath y is present. Calcified pleural plaquing is present along the anterior left upper lung field within t he [id number]. IMPRESSION: 1. There is a critical stenosis of the origin of the right internal carotid artery. 2. Normal [place] NASCET criteria was used in interpretation of this exam?
[2024-04-26] MEDS ORDERED: INSULIN ASPART (NovoLOG) 100 UNIT/ML VIAL SQ SCH (12:30)
[2024-04-26 12:38] LABS: Glucose,Whole Blood 124 mg/dL (70-110)
--- NOTE | 2024-04-26 13:09 | P.PN ---
Subjective Progress Note Date: 04/26/24 patient 73-year-old gentleman past medical history significant for atrial fibrillation presented to ER for evaluation for episode of left facial droop. Patient stated that he [place] group of friends and yesterday had an event when his friend noted that his face was droopy on the left side as well as slurred speech, the whole episode lasted less than 3 minutes. At that time there was no complaint of weakness of any extremity. No complaint of loss of consciousness. Patient was back to normal. At the time he did not seek any medical help and decided to wait till he come back to [place]. Patient also recalls that he had an event last month for syncope at which time he was seen in the hospital and was discharged. Initial lab work done in the ER showed WBC 6.6, hemoglobin 12, platelet count 259, sodium 130, potassium 4.1, BUN 20, creatinine 0.95, calcium 8.6, glucose 113, bilirubin 1.7, troponin 0.012 Chest x-ray done in the ER showed no acute pulmonary process CT head done showed no acute intracranial process, old tiny right periventricular lacunar infarct may be present Patient admitted to internal medicine service 04/25. Patient seen and examined. Neurology evaluated patient, ordered MRI brain. Denies any further episodes of slurred speech. Denies any weakness of any extremity 04/26. Patient seen and examined. MRI brain pending. Discussed with patient regarding patient's HbA1c level of 6.9 and him being newly diagnosed diabetes mellitus, discussed with him regarding regular glucose checks and the need for him to be started on oral hypoglycemic medications, patient not keen to be started on medications but after counseling patient agreed REVIEW OF SYSTEMS: CONSTITUTIONAL: No fever, no malaise,. CARDIOVASCULAR: No chest pain, no palpitations, no syncope. PULMONARY: No shortness of breath, no cough, GASTROINTESTINAL: No diarrhea, no nausea, no vomiting, no abdominal pain. NEUROLOGICAL: No headaches, no weakness, PHYSICAL EXAMINATION: GENERAL: The patient is alert and oriented x3, not in any acute distress. Well developed, well nourished. HEENT: Pupils are round and equally reacting to light. EOMI. No scleral icterus. No conjunctival pallor. Normocephalic, atraumatic. No pharyngeal erythema. No thyromegaly. CARDIOVASCULAR: S1 and S2 present. No murmurs, rubs, or gallops. PULMONARY: Chest is clear to auscultation, no wheezing or crackles. ABDOMEN: Soft, nontender, nondistended, normoactive bowel sounds. No palpable organomegaly. MUSCULOSKELETAL: No joint swelling or deformity. EXTREMITIES: No cyanosis, clubbing, or pedal edema. NEUROLOGICAL: Gross neurological examination did not reveal any focal deficits. SKIN: No rashes. Assessment and plan TIA Right ICA stenosis History of syncope History of atrial fibrillation New onset diabetes mellitus with HbA1c level of 6.9 Monitor vital signs Monitor CBC Monitor CMP Continue telemetry monitoring Continue neurochecks Continue Plavix and Lipitor Continue Eliquis CTA head and neck ordered MRI brain ordered 2D echo pending Start patient on Januvia Neurology following Vascular surgery following Labs and medication were reviewed.. Continue same treatment. Continue with symptomatic treatment. Resume home medication. Monitor labs and vitals. DVT and GI prophylaxis. Further recommendations as per clinical course of the patient Dictation was produced using [employer] dictation software. please excuse any grammatical, word or spelling errors. Objective - Vital Signs Vital signs: Vital Signs Temp 97.6 F 04/26/24 07:00 Pulse 74 04/26/24 07:00 Resp 16 04/26/24 07:00 BP 137/64 04/26/24 07:00 Pulse Ox 97 04/26/24 07:00 FiO2 Intake & Output 04/25/24 04/26/24 04/26/24 18:59 06:59 18:59 Intake Total 236 Balance 236 Intake: Oral 236 Other: Voiding Method Toilet Toilet # Voids 2 2 - Labs CBC & Chem 7: 04/23/24 21:16 04/23/24 21:16
--- NOTE | 2024-04-26 14:14 | P.PN ---
Subjective Progress Note Date: 04/26/24 Patient was initially seen by Dr. Wander Agustin. Please refer to his note for details. Patient is a 73-year-old right-handed male with TIA and has symptomatic right ICA stenosis. Vascular surgery is also consulted. Patient presented with slurred speech, left facial droop and left-sided drooping, and the symptoms lasted for just a few minutes. All symptoms have resolved. He is back to baseline. Some of the workup during this hospital visit consisted of: Lipid panel: TG 181, Cholestrol 157, LDL 80 and HDL 40 HbA1c: 6.9 CT of the head is reported as no acute intracranial process radiographically apparent. Old tiny right periventricular lacunar infarct may be present. Personally reviewed the CT of the head and I agree with the report. Carotid duplex is reported as mild increased velocity within the left internal carotid artery compatible with narrowing between 50 and 69%. Marked elevated velocity right ICA greater than 70%. Objective - Vital Signs Vital signs: Vital Signs Temp 97.6 F 04/26/24 07:00 Pulse 74 04/26/24 07:00 Resp 16 04/26/24 07:00 BP 137/64 04/26/24 07:00 Pulse Ox 97 04/26/24 07:00 FiO2 Intake & Output 04/25/24 04/26/24 04/26/24 18:59 06:59 18:59 Intake Total 236 298 Balance 236 298 Intake: Oral 236 298 Other: Voiding Method Toilet Toilet # Voids 2 2 - Exam Mental status, speech and language functions are normal. Cranial nerves are normal. Visual bravo are full with no neglect. Face is symmetric. On muscle strength testing there is no pronator drift and the strength is normal in arms and legs. Sensory to touch is equal with no neglect. No ataxia for [id number] testing. Patient states that he has been walking to the bathroom and feels stable. - Labs CBC & Chem 7: 04/23/24 21:16 04/23/24 21:16 Labs: Abnormal Lab Results - Last 24 Hours (Table) 04/26/24 Range/Units 12:37 POC Glucose (mg/dL) 124 H (70-110) mg/dL Assessment and Plan Assessment: TIA, manifesting with transient episode of left facial droop, dysarthria is likely due to transient ischemic attack, symptoms resolved in [address] head shows no acute process but old lacunar on the right and it seems over the right basal ganglia. Has symptomatic right ICA stenosis Symptomatic Right ICA stenosis >70% on duplex, and critical stenosis per CTA. Left ICA is 50-69% stenosis on duplex Recent episode of dizziness falling without loss of consciousness and had workup at outside hospital at [facility] and had CT of the head which was unrem arkable Atrial fibrillation on Eliquis New onset diabetes History of abdominal aortic aneurysm status postrepair Essential tremor Plan: ED the patient was given aspirin 325 once. Patient has a history of epistaxis with aspirin use. Dr. Agustin started the patient on Plavix 75 mg daily. He is resumed on home Eliquis 5mg bid for his history of A-fib. Lipitor 80 mg nightly is started by the ED team, as at home he was on 40 mg. Pending MRI of the brain and 2D echo. CTA of head and neck showed critical stenosis of the origin of the right ICA. Normal [place]. Vascular surgery team is consulted. Patient probably will benefit from the right CEA in this admission. Continue neurochecks Cardiac monitoring PT OT and PROJECT MANAGEMENT ADVISOR are consulted For the rest of the medical management to primary and other specialist For DVT prophylaxis On Eliquis
[2024-04-26] MEDS: LINAGLIPTIN 5 MG TABLET PO SCH (15:27)
[2024-04-26 15:41] VITALS: BP 124/69; PULSE 72; TEMP 98.1
--- NOTE | 2024-04-26 16:42 | P.PN ---
Subjective Progress Note Date: 04/26/24 Principal diagnosis: carotid stenosis patient seen and examined. Doing well, doesn't have any lateralizing symptoms such as weakness, vision changes or speech issues. Objective - Vital Signs Vital signs: Vital Signs Temp 98.1 F 04/26/24 15:00 Pulse 72 04/26/24 15:00 Resp 16 04/26/24 15:00 BP 124/69 04/26/24 15:00 Pulse Ox 97 04/26/24 15:00 FiO2 Intake & Output 04/25/24 04/26/24 04/26/24 18:59 06:59 18:59 Intake Total 236 416 Balance 236 416 Intake: Oral 236 416 Other: Voiding Method Toilet Toilet # Voids 2 2 - Exam No focal deficits. Palpable DP and PT pulses - Constitutional General appearance: Present: average body habitus, cooperative, no acute distress - EENT Eyes: Present: PERRLA - Respiratory Respiratory: bilateral: CTA - Cardiovascular Rhythm: regular - Neurologic Neurologic: Present: CNII-XII intact. Absent: focal deficits - Musculoskeletal Musculoskeletal: Present: gait normal - Psychiatric Psychiatric: Present: A&O x's 3, appropriate affect - Labs CBC & Chem 7: 04/23/24 21:16 04/23/24 21:16 Labs: Abnormal Lab Results - Last 24 Hours (Table) 04/26/24 Range/Units 12:37 POC Glucose (mg/dL) 124 H (70-110) mg/dL Assessment and Plan Assessment: Right ICA stenosis greater than 80% History of EVAR Plan: Reviewed CTA neck with him in full detail. Significant stenosis noted at the right ICA Will need surgical intervention within the next couple of weeks. Currently reviewing for possible TCAR vs. CEA. Agree with plavix and Eliquis. Ok to perform carotid intervention as outpatient.
--- NOTE | 2024-04-26 18:06 | CA ---
Transthoracic Echo Report Name: Mason Cisneros Age: 73 Gender: M : 1950 Exam Date: 04/26/2024 09:50 Exam Location: [facility] Ht (in): 65 Wt (lb): 194 Ordering Physician: Randi Bray DO Attending/Referring Phys: [id number] [employer]ato Chip Fryer Rehana Marin, MIGUEL ANGEL Procedure CPT: Indications: Thrombus Cardiac Hx: Technical Quality: Fair Contrast 1: Total Dose (mL): Contrast 2: Total Dose (mL): MEASUREMENTS (Male / Female) Normal Values 2D ECHO LV Diastolic Diameter PLAX 4.3 cm 4.2 - 5.9 / 3.9 - 5.3 cm LV Systolic Diameter PLAX 3.1 cm IVS Diastolic Thickness 1.2 cm 0.6 - 1.0 / 0.6 - 0.9 cm LVPW Diastolic Thickness 1.4 cm 0.6 - 1.0 / 0.6 - 0.9 cm LV Relative Wall Thickness 0.6 RV Internal Dim ED PLAX 3.1 cm LA Systolic Diameter LX 3.5 cm 3.0 - 4.0 / 2.7 - 3.8 cm LV Diastolic Volume MOD BP 85.3 cm??? 67 - 155 / 56 - 104 cm??? LV Systolic Volume MOD BP 32.0 cm??? - 58 / 19 - 49 cm??? LV Ejection Fraction MOD BP 62.5 % >= 55 % LV Cardiac Index MOD BP 1906.5 cm???/min???m??? LV Diastolic Volume MOD 4C 91.9 cm??? LV Systolic Volume MOD 4C 28.5 cm??? LV Ejection Fraction MOD 4C 69.0 % LV Cardiac Index MOD 4C 2267.7 cm???/min???m??? LV Diastolic Length 4C 8.4 cm LV Systolic Length 4C 7.1 cm LV Diastolic Volume MOD 2C 69.8 cm??? LV Systolic Volume MOD 2C 33.9 cm??? LV Ejection Fraction MOD 2C 51.4 % LV Cardiac Index MOD 2C 1283.4 cm???/min???m??? LV Diastolic Length 2C 7.3 cm LV Systolic Length 2C 6.7 cm LA Volume 55.7 cm??? 18 - 58 / 22 - 52 cm??? LA Volume Index 27.3 cm???/m??? 16 - 28 cm???/m??? M-MODE Aortic Root Diameter MM 3.4 cm MV E Point Septal Separation 1.0 cm AV Cusp Separation MM 2.2 cm DOPPLER AV Peak Velocity 127.5 cm/s AV Peak Gradient 6.5 mmHg MV Area PHT 3.4 cm??? Mitral E Point Velocity 68.9 cm/s Mitral A Point Velocity 83.0 cm/s Mitral E to A Ratio 0.8 MV Deceleration Time 224.7 ms FINDINGS Left Ventricle Left ventricular ejection fraction is estimated at 60-65 %. Mildly increased septal wall thickness. Left ventricular cavity size normal. No obvious regional wall motion abnormalities. Right Ventricle Normal right ventricular size and global systolic function. Unable to estimate the right ventricular systolic pressure. Right Atrium Normal right atrial size. No right atrial thrombus or mass seen. Left Atrium Mildly increased left atrial area. No left atrial thrombus or mass present. Mitral Valve Structurally normal mitral valve. No mitral stenosis, regurgitation or prolapse. Aortic Valve Trileaflet aortic valve. No aortic valve stenosis or regurgitation. Tricuspid Valve Structurally normal tricuspid valve. No tricuspid stenosis, regurgitation or prolapse. Pulmonic Valve Structurally normal pulmonic valve. Trace pulmonic regurgitation. Pericardium No pericardial effusion. No pleural effusion. Aorta Normal size aortic root and proximal ascending aorta. CONCLUSIONS Left ventricular ejection fraction is estimated at 60-65 %. No obvious regional wall motion abnormalities. Mildly increased septal wall thickness. Normal right ventricular size and function. Mild LA dilatation No significant valvular dysfunction Previewed by: Dr Kirill Bryson (Electronically Signed) Final Date: 26 Apr 2024 18:05
--- NOTE | 2024-04-27 09:44 | P.DS ---
Providers Date of admission: 04/24/24 03:27 Expected date of discharge: 04/26/24 Attending physician: Franco Rowan Consults: 04/24/24 03:28 Consult Physician Routine Consulting Provider: Wander Agustin Consult Reason/Comments: TIA Do you want consulting provider notified?: Yes, Notify in am 04/24/24 10:20 Consult Physician Routine Consulting Provider: Zhanna Ortiz Consult Reason/Comments: greater than 70percent occlusion right ica Do you want consulting provider notified?: Yes Primary care physician: Carlita Mason Hospital Course: Discharge diagnoses; TIA Right ICA stenosis History of syncope History of atrial fibrillation New onset diabetes mellitus with HbA1c level of 6.9 Hospital course; patient 73-year-old gentleman past medical history significant for atrial fibrillation presented to ER for evaluation for episode of left facial droop. Patient stated that [place] group [place] friends and yesterday had an event when his friend noted that his face was droopy on the left side as well as slurred speech, the whole episode lasted less than 3 minutes. At that time there was no complaint of weakness of any extremity. No complaint of loss of c onsciousness. Patient was back to normal. At the time he did not seek any medical help and decided to wait till he come back to [place]. Patient also recalls that he had an event last month for syncope at which time he was seen in the hospital and was discharged. Initial lab work done in the ER showed WBC 6.6, hemoglobin 12, platelet count 259, sodium 130, potassium 4.1, BUN 20, creatinine 0.95, calcium 8.6, glucose 113, bilirubin 1.7, troponin 0.012 Chest x-ray done in the ER showed no acute pulmonary process CT head done showed no acute intracranial process, old tiny right periventricu lar lacunar infarct may be present Patient admitted to internal medicine service 04/25. Patient seen and examined. Neurology evaluated patient, ordered MRI brain. Denies any further episodes of slurred speech. Denies any weakness of any extremity 04/26. Patient seen and examined. MRI brain pending. Discussed with patient regarding patient's HbA1c level of 6.9 and him being newly diagnosed diabetes mellitus, discussed with him regarding regular glucose checks and the need for him to be started on oral hypoglycemic medications, patient not keen to be started on medications but after counseling patient agreed. Vascular surgery recommend outpatient follow-up for possible right-sided carotid endarterectomy, patient cleared for discharge PHYSICAL EXAMINATION: GENERAL: The patient is alert and oriented x3, not in any acute distress. Well developed, well nourished. HEENT: Pupils are round and equally reacting to light. EOMI. No scleral icterus. No conjunctival pallor. Normocephalic, atraumatic. No pharyngeal erythema. No thyromegaly. CARDIOVASCULAR: S1 and S2 present. No murmurs, rubs, or gallops. PULMONARY: Chest is clear to auscultation, no wheezing or crackles. ABDOMEN: Soft, nontender, nondistended, normoactive bowel sounds. No palpable organomegaly. MUSCULOSKELETAL: No joint swelling or deformity. EXTREMITIES: No cyanosis, clubbing, or pedal edema. NEUROLOGICAL: Gross neurological examination did not reveal any focal deficits. SKIN: No rashes. Dictation was produced using [employer] dictation software. please excuse any grammatical, word or spelling errors. Patient Condition at Discharge: Stable Plan - Discharge Summary Discharge Rx Participant: No New Discharge Prescriptions: New Clopidogrel [Plavix] 75 mg PO DAILY 30 Days #30 tab Linagliptin [Tradjenta] 5 mg PO DAILY 30 Days #30 tab Atorvastatin [Lipitor] 80 mg PO HS 30 Days #30 tab Continue Metoprolol Succinate (ER) [Toprol XL] 12.5 mg PO DAILY Apixaban [Eliquis] 5 mg PO BID Mv-Min/Folic/K1/Lycopen/Lutein [Centrum Silver Men Tablet] 1 tab PO DAILY Discontinued Atorvastatin Calcium 40 mg PO HS Discharge Medication List Apixaban [Eliquis] 5 mg PO BID 04/17/23 [History] Metoprolol Succinate (ER) [Toprol XL] 12.5 mg PO DAILY 04/17/23 [History] Mv-Min/Folic/K1/Lycopen/Lutein [Centrum Silver Men Tablet] 1 tab PO DAILY 04/24/24 [History] Atorvastatin [Lipitor] 80 mg PO HS 30 Days #30 tab 04/26/24 [Rx] Clopidogrel [Plavix] 75 mg PO DAILY 30 Days #30 tab 04/26/24 [Rx] Linagliptin [Tradjenta] 5 mg PO DAILY 30 Days #30 tab 04/26/24 [Rx] Follow up Appointment(s)/Referral(s): Tom Kline DO [STAFF PHYSICIAN] - 1 Week Carlita Mason DO [Primary Care Provider] - 1-2 days Patient Instructions/Handouts: Transient Ischemic Attack (DC), Carotid Artery Disease (DC) Discharge Disposition: HOME SELF-CARE
== END 2024-04-26 18:35 | disposition home or self-care (01) ==
LOC: EC 20:49 → 6NMEDSUR 04-24 03:27
PROVIDERS: ADMIT Hospitalist; ATTEND Hospitalist
DX: I65.21 Occlusion and stenosis of right carotid artery (principal); I48.91 Unspecified atrial fibrillation; E11.9 Type 2 diabetes mellitus without complications; G25.0 Essential tremor; E78.5 Hyperlipidemia, unspecified; Z87.891 Personal history of nicotine dependence; Z86.79 Personal history of other diseases of the circulatory system; Z86.73 Personal history of transient ischemic attack (TIA), and cerebral infarction without residual deficits; Z79.02 Long term (current) use of antithrombotics/antiplatelets; Z79.01 Long term (current) use of anticoagulants; Z90.49 Acquired absence of other specified parts of digestive tract
CPT/HCPCS: 99285; 36415; 93005; 93306; 97161; 97165; 80061; 80053; 82550; 84484; 85025; 85610; 85730; 83036; 71046; 93880; 70496; 70450; 70498; G0378 ×3; Q9967

== ENCOUNTER 2024-06-03 09:28 | Inpatient (IN) | payer MEDICARE ==
[2024-05-31 11:24] VITALS: BMI 33.1
[~2024-06-03 09:28] MED LIST changes: +ALPRAZolam 0.25 MG TAB PO PRN; +ALPRAZolam 0.5 MG TAB PO PRN; +ASPIRIN 81 MG PO PRN; -FAMOTIDINE 20 MG/2 ML VIAL IV PRN; -ONDANSETRON 4 MG/2 ML VIAL IVP PRN; +RX INFO: IV CONTRAST WAS GIVEN 1 EACH MISC MISCELLANE PRN; +ceFAZolin 2 GM in SODIUM CHLORIDE 0.9% 500 ML 500 ML IRRIGATION PRN
[2024-06-03] MEDS: SODIUM CHLORIDE 0.9% 1,000 ML in EMPTY BAG 1 BAG IV ONE (09:56)
[2024-06-03] MEDS: IV FLUID CONTINUATION 1,000 ML IV ONE ×2 (09:57→13:15)
[2024-06-03] MEDS: ASPIRIN 325 MG TAB PO PRN (09:59)
[2024-06-03] MEDS: CLOPIDOGREL 75 MG TAB PO PRN (09:59)
[2024-06-03 10:07] LABS: Basophils # (A) 0.1 k/uL (0-0.2); Basophils % (A) 1 %; Eosinophils # (A) 0.2 k/uL (0-0.7); Eosinophils % (A) 2 %; HCT 43.4 % (39.0-53.0); HGB 13.7 gm/dL (13.0-17.5); Hypochromasia Slight; Lymphocytes # (A) 1.8 k/uL (1.0-4.8); Lymphocytes % (A) 25 %; MCH 32.2 pg (25.0-35.0); MCHC 31.7 g/dL (31.0-37.0); MCV 101.8 fL (80.0-100.0); Macrocytosis Slight; Mean Platelet Volume 6.9; Monocytes # (A) 0.4 k/uL (0-1.0); Monocytes % (A) 5 %; Neutrophils # (A) 4.8 k/uL (1.3-7.7); Neutrophils % (A) 66 %; Platelet Count 294 k/uL (150-450); RBC 4.27 m/uL (4.30-5.90); RDW 14.7 % (11.5-15.5); WBC 7.3 k/uL (3.8-10.6)
[2024-06-03] MEDS: MIDAZOLAM 2 MG/2 ML VIAL IV ONE (10:38)
[2024-06-03] MEDS: LIDOCAINE 1% PF 10 MG/ML (5 ML AMP) SQ ONE (10:39)
[2024-06-03] MEDS ORDERED: MIDAZOLAM 2 MG/2 ML VIAL ONE (11:04)
[2024-06-03] MEDS ORDERED: fentaNYL (PF) 50 MCG/ML 2 ML AMP ONE (11:04)
[2024-06-03] MEDS ORDERED: PROTAMINE SULFATE 10 MG/ML 5 ML VIAL ONE (11:04)
[2024-06-03] MEDS ORDERED: HEPARIN SODIUM,PORCINE 10,000 UNIT/ML 1 ML VIAL ONE (11:04)
[2024-06-03 11:16] LABS: African American GFR (CKD) >90 (>60 ml/min/1.73 sqM); Anion Gap 7 mmol/L; Blood Urea Nitrogen 21 mg/dL (9-20); Calcium 8.6 mg/dL (8.4-10.2); Carbon Dioxide 24 mmol/L (22-30); Chloride 108 mmol/L (98-107); Glucose 139 mg/dL (74-99); Non-African American GFR(CKD) 88 (>60 ml/min/1.73 sqM); Potassium 4.6 mmol/L (3.5-5.1); Sodium 139 mmol/L (137-145)
[2024-06-03] MEDS ORDERED: LIDOCAINE 1% INJ 10MG/ML (20 ML MDV) ONE (11:25)
[2024-06-03] MEDS: LIDOCAINE 1% INJ 10MG/ML (20 ML MDV) SQ ONE (11:29)
[2024-06-03] MEDS: IOPAMIDOL-370 100ML BTL INJ ONE (12:45)
[2024-06-03] MEDS: SODIUM CHLORIDE 0.9% 1,000 ML IV ONE (13:02)
[2024-06-03] MEDS ORDERED: MAG HYDROX/AL HYDROX/SIMETH 30 ML CUP PO PRN (13:20)
[2024-06-03] MEDS ORDERED: HYDROcodone/APAP 5-325MG 1 EACH TAB PO PRN (13:20)
[2024-06-03] MEDS ORDERED: ATROPINE SULFATE 0.1 MG/ML 10ML SYRINGE IV PRN (13:20)
--- NOTE | 2024-06-03 13:20 | P.OP ---
Description of Procedure: Date: 06/03/2024 Preoperative diagnosis: Symptomatic right ICA stenosis 99% Postoperative diagnosis: Same Procedure: Right Transcarotid artery revascularization with stenting Surgeon: Tom Kline DO Anesthesia: MAC Complications: none Condition: stable Flow reversal time: 20 mins Indication for procedure: 73 year old gentleman with history of previous CVA and speech issues who was found to have severe right ICA stenosis greater than 90% presents for elective right TCAR. Operative narrative: After written and informed consent was obtained the patient all risks benefits and competitions were described the patient was brought to the Supervisor Mixing and laid in a supine position. The area of the neck and groins were prepped and draped in usual sterile fashion after appropriate anesthetic was performed per the anesthesiologist. A timeout was performed in normal fashion and antibiotics were administered prior to incision. Utilizing ultrasound the right common carotid artery was located and a transverse incision was created overlying this area. Dissection was carried between the sternocleidomastoid musculature down to the carotid sheath. The sheath was then incised and the common carotid artery was located and dissected free in a circumferential manner and controlled with umbilical tape. Once controlled attention was placed down to the common femoral vein on the left and utilizing ultrasound the vein was cannulated and the 8-Bruneian sheath was placed in normal fashion. Attention was then placed back to the carotid artery and the patient was administered heparin and followed with ACTs and redosed as needed for ACT above 200. A pursestring suture was then placed at the common carotid artery with 6-0 Prolene and utilizing a multipurpose needle the common carotid artery was accessed and wire was placed followed by a 4-Bruneian sheath. Carotid angiogram was then obtained demonstrating significant stenosis 99% to subtotal occlusion in the internal carotid artery. Stiff wire was then placed followed by the 8 [place] sheath. Flow reversal was then established with the enroute ACCOUNT DEVELOPMENT SPECIALIST system after patient's blood pressure was increased to above 160, heart rate above 60 and ACT above 250. 014 wire was then placed across the lesion followed by a 5x30mm balloon and balloon angioplasty was performed follo wed by an 8x30mm [place] stent. Postdilatation was not performed and final angiogram was obtained demonstrating complete resolution of the stenosis. All guidewires and catheters were removed and the sheath was removed and the arteriotomy was secured with the previously placed pursestring suture. Hemostasis was assured with Gelfoam and thrombin. The femoral sheath was also removed and pressure was held for hemostasis. The patient all procedure well and was moving all extremities and following commands. She was then sent to PACU for recovery.
--- NOTE | 2024-06-03 13:38 | IR ---
EXAMINATION TYPE: IR stent intravas non coronary DATE OF EXAM: 06/03/2024 COMPARISON: NONE HISTORY: Fluoroscopy time. Fluoroscopy was provided to the referring clinician.
[2024-06-03] MEDS: SODIUM CHLORIDE 0.9% 1,000 ML IV SCH (15:23)
[2024-06-03] MEDS: ATORVASTATIN 80 MG TAB PO SCH (20:40)
[2024-06-03] MEDS: ATORVASTATIN 40 MG TAB PO SCH (20:44)
[2024-06-04] MEDS: METOPROLOL SUCCINATE (ER) 25 MG TAB.ER.24H PO SCH (07:27)
[2024-06-04] MEDS: LINAGLIPTIN 5 MG TABLET PO SCH (07:27)
[2024-06-04] MEDS: ASPIRIN 81 MG PO SCH (07:28)
[2024-06-04] MEDS: CLOPIDOGREL 75 MG TAB PO SCH ×2 (07:28)
[2024-06-04 07:34] VITALS: BP 130/77; PULSE 107; RESP 18; TEMP 98.1
[2024-06-04 07:57] LABS: Basophils % (A) 0 %; Eosinophils # (A) 0.1 k/uL (0-0.7); Eosinophils % (A) 2 %; HCT 39.8 % (39.0-53.0); HGB 12.4 gm/dL (13.0-17.5); Lymphocytes % (A) 14 %; MCH 31.7 pg (25.0-35.0); MCHC 31.2 g/dL (31.0-37.0); MCV 101.7 fL (80.0-100.0); Macrocytosis Slight; Mean Platelet Volume 7.3; Monocytes # (A) 0.3 k/uL (0-1.0); Monocytes % (A) 5 %; Neutrophils # (A) 5.4 k/uL (1.3-7.7); Neutrophils % (A) 78 %; Platelet Count 278 k/uL (150-450); RBC 3.91 m/uL (4.30-5.90); RDW 14.5 % (11.5-15.5)
--- NOTE | 2024-06-04 08:06 | P.PN ---
Subjective Progress Note Date: 06/04/24 Principal diagnosis: carotid stenosis Doing well. no issues overnight. Objective - Vital Signs Vital signs: Vital Signs Temp 98.1 F 06/04/24 07:33 Pulse 107 H 06/04/24 07:33 Resp 18 06/04/24 07:33 BP 130/77 06/04/24 07:33 Pulse Ox 95 06/04/24 07:33 FiO2 Intake & Output 06/03/24 06/04/24 06/04/24 18:59 06:59 18:59 Intake Total 1868 300 20 Output Total 250 2100 Balance 1618 -1800 20 Weight 91.4 kg 100.1 kg Intake: IV 1250 20 Invasive Line 2 10 Invasive Line 3 10 Intake, IV Titration 500 300 Amount Sodium Chloride 0.9% 1, 500 300 000 ml @ 100 mls/hr IV . Q10H DONELL Rx#:[id number] Oral 118 Output: Urine 250 2100 Other: Voiding Method Urinal Urinal Urinal # Voids 1 - Exam incision site on right neck clean, dry and intact no hematoma or sign of infection no focal deficits, tongue midline, no facial droop - Labs CBC & Chem 7: 06/04/24 07:17 06/03/24 10:30 Labs: Abnormal Lab Results - Last 24 Hours (Table) 06/03/24 06/03/24 06/04/24 Range/Units 09:50 10:30 07:17 RBC 4.27 L 3.91 L (4.30-5.90) m/uL Hgb 12.4 L (13.0-17.5) gm/dL MCV 101.8 H 101.7 H (80.0-100.0) fL Chloride 108 H (98-107) mmol/L BUN 21 H (9-20) mg/dL Glucose 139 H (74-99) mg/dL Assessment and Plan Assessment: right ICA stenosis #1 Right TCAR Plan: ok for discharge home continue plavix and eliquis follow up in office in 10 days
[2024-06-04 08:14] LABS: African American GFR (CKD) >90 (>60 ml/min/1.73 sqM); Anion Gap 9 mmol/L; Blood Urea Nitrogen 15 mg/dL (9-20); Carbon Dioxide 24 mmol/L (22-30); Chloride 104 mmol/L (98-107); Glucose 157 mg/dL (74-99); Non-African American GFR(CKD) >90 (>60 ml/min/1.73 sqM); Potassium 4.3 mmol/L (3.5-5.1); Sodium 137 mmol/L (137-145)
[2024-06-04] MEDS ORDERED: NON FORMULARY DRUG (Mv-Min/Folic/K1/Lycopen/Lutein [Centrum Silver Men Tablet] 1 EACH Tabl PO SCH (09:00)
[2024-06-04] MEDS: APIXABAN 5 MG TAB PO SCH (09:25)
--- NOTE | 2024-06-07 18:04 | P.DS ---
Providers Date of admission: 06/03/24 09:28 Attending physician: Tom Kline DO Consults: 06/03/24 13:20 Consult Physician Routine Consulting Provider: Carlita Mason Consult Reason/Comments: medical management Do you want consulting provider notified?: Yes Primary care physician: Carlita Mason - Discharge Diagnosis(es) (1) Carotid stenosis Status: Acute Hospital Course: Right TCAR performed without issues. Admitted to hospital overnight and discharged the following day in stable condition. Patient Condition at Discharge: Good Plan - Discharge Summary Discharge Rx Participant: No New Discharge Prescriptions: No Action Metoprolol Succinate (ER) [Toprol XL] 12.5 mg PO QAM Apixaban [Eliquis] 5 mg PO BID Mv-Min/Folic/K1/Lycopen/Lutein [Centrum Silver Men Tablet] 1 tab PO DAILY Clopidogrel [Plavix] 75 mg PO DAILY 30 Days #30 tab Linagliptin [Tradjenta] 5 mg PO DAILY 30 Days #30 tab Atorvastatin [Lipitor] 80 mg PO HS 30 Days #30 tab Discharge Medication List Apixaban [Eliquis] 5 mg PO BID 04/17/23 [History] Metoprolol Succinate (ER) [Toprol XL] 12.5 mg PO QAM 04/17/23 [History] Mv-Min/Folic/K1/Lycopen/Lutein [Centrum Silver Men Tablet] 1 tab PO DAILY 04/24/24 [History] Atorvastatin [Lipitor] 80 mg PO HS 30 Days #30 tab 04/26/24 [Rx] Clopidogrel [Plavix] 75 mg PO DAILY 30 Days #30 tab 04/26/24 [Rx] Linagliptin [Tradjenta] 5 mg PO DAILY 30 Days #30 tab 04/26/24 [Rx] Follow up Appointment(s)/Referral(s): Tom Kline DO [STAFF PHYSICIAN] - 10 Days (CALL OFFICE WHEN OPEN TO MAKE FOLLOW UP APPOINTMENT) Activity/Diet/Wound Care/Special Instructions: no lifting greater than 15 lbs x 2 weeks. no driving till seen in office ok to shower Discharge Disposition: HOME SELF-CARE
== END 2024-06-04 10:15 | disposition home or self-care (01) | DRG 36 ==
LOC: 2ORMAIN 09:28 → 3SCARD 14:22
PROVIDERS: ADMIT Surgery; ATTEND Surgery
PROC: 037K3DZ Dilation of Right Internal Carotid Artery with Intraluminal Device, Percutaneous Approach (ICD-10-PCS; principal; 2024-06-03 11:30)
DX: I65.21 Occlusion and stenosis of right carotid artery (principal); E11.9 Type 2 diabetes mellitus without complications; I48.0 Paroxysmal atrial fibrillation; E78.2 Mixed hyperlipidemia; Z79.82 Long term (current) use of aspirin; Z79.02 Long term (current) use of antithrombotics/antiplatelets; Z79.899 Other long term (current) drug therapy; Z87.891 Personal history of nicotine dependence
CPT/HCPCS: 80048; 85025; 86850; 86900; 86901